=== PATIENT | female | born 1940 | race Caucasian/White ===

== ENCOUNTER 2017-12-08 14:20 | Outpatient (CLI) | payer MEDICARE ==
--- NOTE | 2017-12-08 15:57 | RAD ---
TWO VIEW CHEST: 12/08/17 COMPARISON: 06/15/17 INDICATION: Dyspnea. FINDINGS: No new consolidation, effusion or pneumothorax. Metallic clips are again seen at the left upper quadr ant. There is vascular calcification. Osseous structures are stable. IMPRESSION: Stable chest. POS: [facility]
== END 2017-12-08 14:21 | disposition home or self-care (01) ==
LOC: RAD 14:20
PROVIDERS: ATTEND Internal Medicine Pulmonary Disease
DX: R06.00 Dyspnea, unspecified (principal)
CPT/HCPCS: 71046

== ENCOUNTER 2018-01-12 08:55 | Day surgery (SDC) | payer MEDICARE ==
[2018-01-12] MEDS ORDERED: diphenhydrAMINE 25 MG CAP PO SCH (09:30)
[2018-01-12] MEDS ORDERED: Acetaminophen 500 MG TAB PO SCH (09:30)
[2018-01-12] MEDS ORDERED: Sodium Chloride 0.9% 20 ML ONE (09:47)
[2018-01-12 15:25] VITALS: BP 163/70; TEMP 98.1
[2018-01-12 16:53] LABS: Anisocytosis SLIGHT = 6-15 cells (100X) (0-5/hpf); Hemoglobin 11.5 g/dL (12.0-16.0); Hypochromia SLIGHT = 6-15 cells (100X) (0-5/hpf); Lymphocytes 7 % (21-51); MDiff Complete? YES; Mean Corpuscular HGB CONC 30.7 g/dL (32.0-36.0); Mean Corpuscular Hemoglobin 32.5 pg (27.0-31.0); Mean Platelet Volume 7.2 fL (7.4-10.4); Monocytes 5 % (0-10); Neutrophil 87 % (42-75); PLT Morphology Comment Appears Adequate; Platelet Count 325 thou/uL (130-400); RBC Distribution Width 19.2 % (11.5-14.5); Reactive Lymphocytes 1 % (0-10); Red Blood Cell (RBC) Count 3.54 mill/uL (4.20-5.40); White Blood Cell (WBC) Count 5.4 thou/uL (4.8-10.8)
== END 2018-01-12 16:40 | disposition home or self-care (01) ==
LOC: ONC/OP 08:55
PROVIDERS: ATTEND Internal Medicine Hematology & Oncology
PROC: 30233N1 Transfusion of Nonautologous Red Blood Cells into Peripheral Vein, Percutaneous Approach (ICD-10-PCS; principal; 2018-01-12)
DX: D64.9 Anemia, unspecified (principal); D69.6 Thrombocytopenia, unspecified
CPT/HCPCS: 36415; 36430; 85025; 86850; 86900; 86901; A4216; P9016

== ENCOUNTER 2018-02-09 05:57 | Day surgery (SDC) | payer MEDICARE ==
[2018-02-08 14:54] VITALS: BMI 28.3
[2018-02-09] MEDS ORDERED: Ondansetron HCl/PF 4 MG/2 ML Vial ONE ×2 (07:26→14:53)
[2018-02-09] MEDS ORDERED: Promethazine HCl 25 MG/ML VIAL ONE (07:26)
--- NOTE | 2018-02-09 07:39 | HP ---
SHORT STAY HISTORY AND PHYSICAL DATE OF ADMISSION: 02/09/2018 HISTORY OF PRESENT ILLNESS: This is a 77-year-old female referred to me for evaluation of anemia, oc cult GI bleeding. The patient has a history of iron-deficiency anemia over the last four years. The patient has no history of active bleeding. . The patient has similar episodes in 2013 and coronado d an EGD and colonoscopy in [place]. It was actually reported negative. The patient's blood count h as been dropping her off and on. The patient had stool for occult blood . Dr. Girard and was f ound to have positive occult blood. The patient has no abdominal pain, no nausea, no vomiting. No d ysphagia, no odynophagia. The patient has history of coronary artery disease, status post stent plac ement. She had type 2 diabetes. The patient comes for an EGD and a colonoscopy because of ane leopoldo, occult GI bleeding. ALLERGIES: Allergic to , PROPOFOL. SOCIAL HISTORY: The patient is former smoker. Quit smoking in 1997. She has no alcohol intake. MEDICAL ILLNESSES: 1. Hypertension. 2. Coronary artery disease, status post stent placement. 3. Renal artery stent placement. 4. stent placement. 5. Trigeminal neuralgia. 6. Chronic obstructive pulmonary disease. 7. Hyperlipidemia. 8. IPD status post splenectomy in 1974. PHYSICAL EXAMINATION: VITAL SIGNS: Pulse is 70, blood pressure 130/80. HEENT: Conjunctivae clear. CARDIOVASCULAR AND LUNGS: Within normal limits. ABDOMEN: Soft to palpate. No organomegaly. No tenderness. No masses. ADMITTING DIAGNOSIS: Anemia, occult gastrointestinal bleeding. PLAN: EGD and colonoscopy.
[2018-02-09] MEDS ORDERED: PROPOFOL 200 MG/20 ML VIAL ONE (14:53)
[2018-02-09] MEDS ORDERED: Lidocaine 1% PF 5 ML VIAL ONE (14:53)
[2018-02-09] MEDS ORDERED: Dexamethasone 20 MG/5 ML VIAL ONE (14:53)
--- NOTE | 2018-02-10 00:54 | OP ---
DATE OF PROCEDURE: 02/09/2018 OPERATIVE PROCEDURE: Colonoscopy. PREOPERATIVE DIAGNOSIS: A 77-year-old female with anemia, occult gastrointestinal bleeding . The patient is undergoing colonoscopy. POSTOPERATIVE DIAGNOSES: 1. Sigmoid diverticular disease. 2. Hemorrhoids. PROCEDURE NOTE: The patient was placed on her left lateral position and was given sedation by Anesth esia Department. A rectal exam was done before the scope was advanced into the rectum. No lesions f elt on rectal exam. A Pentax video colonoscope was introduced into the rectum and advanced all the w ay into cecum. The patient has redundant colon and abdominal compression was used to advance the sco pe all the way into the cecum. The appendical orifice, ileocecal valve and cecum, no pathology seen. The mucosa appears normal throughout the colon with normal vascular pattern. Withdrawal of scope f rom the cecum to ascending colon and hepatic flexure, no pathology seen except for occasional diverti cula over the ascending colon. The transverse colon, splenic flexure and descending colon, no pathol ogy seen. The sigmoid colon showed scattered diverticular disease. Rectum showed hemorrhoids.
--- NOTE | 2018-02-10 00:58 | OP ---
DATE OF SURGERY: 02/09/2018 OPERATIVE PROCEDURE: Esophagogastroduodenoscopy. PREOPERATIVE DIAGNOSIS: A 77-year-old female undergoing EGD because of anemia, occult sean rointestinal bleeding. POSTOPERATIVE DIAGNOSIS: 2-3 small gastric polyps over gastric body. Otherwise, the exam is normal. PROCEDURE NOTE: The patient was placed on left lateral position and was given sedation by Anesthesia Department. A Pentax video gastroscope under direct vision was passed down the oropharynx, past the GE junction, into the stomach and subsequently into the descending duodenum. The esophageal mucosa appeared normal. In the GE junction, no pathology seen. Retroflexion failed to show any lesions in the fundus or cardia. The gastric body shows the gastric polyp. The polyp appears endoscopically hy perplastic and very small. No biopsies were obtained. The gastric antrum, incisural angularis, no p athology seen. The duodenal bulb and descending duodenum, no pathology seen. The stomach was decomp ressed and the scope removed. DISCHARGE PLANNING: A 77-year-old female referred to me by Dr. Jose Juan Girard because of an emia, occult GI bleeding. The colonoscopy showed no pathology to explain anemia. The patient has coronado d EGD and colonoscopy and capsule endoscopy 4 years ago in [place]. At that time, all are reported n ormal. The patient does take clopidogrel. Based on the above information, it was thought that the p atient would have mild oozing of blood from possibly AVMs. DISCHARGE RECOMMENDATIONS: 1. The patient is advised to call me if she develops abdominal pain, hematochezia, or fever. 2. To come back to clinic in 2 weeks.
== END 2018-02-09 09:20 | disposition home or self-care (01) ==
LOC: SDC 05:57
PROVIDERS: ATTEND Internal Medicine Gastroenterology
PROC: 0DJD8ZZ Inspection of Lower Intestinal Tract, Via Natural or Artificial Opening Endoscopic (ICD-10-PCS; principal; 2018-02-09)
PROC: 0DJ08ZZ Inspection of Upper Intestinal Tract, Via Natural or Artificial Opening Endoscopic (ICD-10-PCS; 2018-02-09)
DX: K31.7 Polyp of stomach and duodenum (principal); K57.30 Diverticulosis of large intestine without perforation or abscess without bleeding; K64.4 Residual hemorrhoidal skin tags; D50.9 Iron deficiency anemia, unspecified; R19.5 Other fecal abnormalities; I10 Essential (primary) hypertension; I25.10 Atherosclerotic heart disease of native coronary artery without angina pectoris; J44.9 Chronic obstructive pulmonary disease, unspecified; E78.5 Hyperlipidemia, unspecified; Z88.8 Allergy status to other drugs, medicaments and biological substances; Z87.891 Personal history of nicotine dependence; Z79.02 Long term (current) use of antithrombotics/antiplatelets; Z79.51 Long term (current) use of inhaled steroids; Z79.83 Long term (current) use of bisphosphonates; Z79.899 Other long term (current) drug therapy; Z90.81 Acquired absence of spleen; Z98.890 Other specified postprocedural states
CPT/HCPCS: J1100; J2001; J2405; J2550; J2704

== ENCOUNTER 2018-07-25 11:36 | Emergency (ER) | payer MEDICARE ==
[2018-07-25 13:05] LABS: #Basophils 0.2 thou/uL (0.0-0.2); #Eosinphils 0.2 thou/uL (0.0-0.7); #Neutrophils 4.2 thou/uL (1.40-6.50); %Basophils 2.8 % (0.0-1.0); %Eosinophils 2.4 % (0.0-10.0); %Lymphocytes 15.8 % (21.0-51.0); %Monocytes 14.5 % (0.0-10.0); %Neutrophils 64.5 % (42.0-75.0); Hemoglobin 13.2 g/dL (12.0-16.0); Mean Corpuscular HGB CONC 32.4 g/dL (32.0-36.0); Mean Corpuscular Hemoglobin 31.7 pg (27.0-31.0); Mean Corpuscular Volume 97.7 fL (78.0-98.0); Mean Platelet Volume 7.8 fL (7.4-10.4); Platelet Count 267 thou/uL (130-400); Red Blood Cell (RBC) Count 4.18 mill/uL (4.20-5.40); White Blood Cell (WBC) Count 6.6 thou/uL (4.8-10.8)
[2018-07-25 13:16] LABS: ALT (SGPT) 16 U/L (8-55); AST (SGOT) 22 U/L (5-34); Albumin 4.2 g/dL (3.4-4.8); Alkaline Phosphatase 91 U/L (40-150); Anion Gap 12 mmol/L (10-20); BUN (Urea Nitrogen) 17 mg/dL (9.8-20.1); Bilirubin, Total 0.2 mg/dL (0.2-1.2); Calc. Creatinine Clearance 0 mL/min (70-130); Calcium 9.6 mg/dL (7.8-10.44); Carbon Dioxide 28 mmol/L (23-31); Chloride 104 mmol/L (98-107); Estimated GFR-MDRD 68; Globulin 2.9 g/dL (2.4-3.5); Glucose 114 mg/dL (83-110); Protein, Total 7.1 g/dL (6.0-8.3); Sodium 140 mmol/L (136-145)
--- NOTE | 2018-07-25 14:22 | ULT ---
VENOUS DOPPLER ULTRASOUND OF THE LEFT LOWER EXTRMITY: HISTORY: Left lower extremity erythema and edema. TECHNIQUE: Villeda scale, color flow, and spectral Doppler imaging of the deep venous system of the left lower extr emity is performed. FINDINGS: There is good flow, compression, and augmentation noted in the left common femoral, femoral, deep fem oral, popliteal, posterior tibial, and visualized portions of the greater saphenous veins. IMPRESSION: No evidence of deep vein thrombosis in the left lower extremity. POS: [facility]
== END 2018-07-25 14:09 | disposition home or self-care (01) ==
LOC: SCSER 11:36
DX: L53.9 Erythematous condition, unspecified (principal); I25.10 Atherosclerotic heart disease of native coronary artery without angina pectoris; E78.5 Hyperlipidemia, unspecified; K21.9 Gastro-esophageal reflux disease without esophagitis; I10 Essential (primary) hypertension; G62.9 Polyneuropathy, unspecified; M81.0 Age-related osteoporosis without current pathological fracture; J44.9 Chronic obstructive pulmonary disease, unspecified; Z86.718 Personal history of other venous thrombosis and embolism; Z79.899 Other long term (current) drug therapy
CPT/HCPCS: 36415; 80053; 85025; 85730

== ENCOUNTER 2018-11-29 07:55 | Outpatient (CLI) | payer MEDICARE ==
[2018-11-29 09:02] LABS: Bilirubin Negative (Negative); Blood, Urine Negative (Negative); Clarity Clear (Clear); Glucose, Urine (Dipstick) Negative (Negative); Leukocyte Negative (Negative); Nitrite Negative (Negative); Protein, Urine (Dipstick) Negative (Neg-Trace); Urobilinogen 0.2 mg/dL (0.2-1.0)
[2018-11-29 09:10] LABS: ALT (SGPT) 18 U/L (8-55); AST (SGOT) 24 U/L (5-34); Albumin 4.1 g/dL (3.4-4.8); Alkaline Phosphatase 89 U/L (40-150); Anion Gap 13 mmol/L (10-20); BUN (Urea Nitrogen) 17 mg/dL (9.8-20.1); Bilirubin, Total 0.3 mg/dL (0.2-1.2); Calc. Creatinine Clearance 0 mL/min (70-130); Calcium 9.3 mg/dL (7.8-10.44); Carbon Dioxide 28 mmol/L (23-31); Chloride 100 mmol/L (98-107); Estimated GFR-MDRD 69; Globulin 3.1 g/dL (2.4-3.5); Glucose 88 mg/dL (83-110); Potassium 4.3 mmol/L (3.5-5.1); Protein, Total 7.2 g/dL (6.0-8.3); Sodium 137 mmol/L (136-145)
--- NOTE | 2018-11-29 09:17 | RAD ---
THORACIC SPINE SERIES THREE VIEWS: History: Back pain x 1 one week. Comparison: 12-08-17 chest radiograph. FINDINGS: The bones are demineralized. Loss of vertebral body height of one of the mid thoracic bodies which ap pears to be probably the T7 vertebral body and slight loss of vertebral body height of T11. Changes a ppear stable. I see no new compression injury. Degenerative osteophytes are seen. Pedicles are intact . IMPRESSION: Arthritic changes of the spine, stable minimal loss of vertebral height at what appears to be T7 and T11. POS: [facility]
[2018-11-29 10:12] LABS: Band 4 % (5-11); Hemoglobin 13.9 g/dL (12.0-16.0); Lymphocytes 9 % (21-51); MDiff Complete? YES; Mean Corpuscular HGB CONC 31.3 g/dL (32.0-36.0); Mean Corpuscular Hemoglobin 31.5 pg (27.0-31.0); Monocytes 16 % (0-10); Neutrophil 69 % (42-75); Platelet Count 230 thou/uL (130-400); Platelet Morphology Comment Appears Adequate; RBC Distribution Width 13.9 % (11.5-14.5); RBC Morphology Normal; Reactive Lymphocytes 1 % (0-10); White Blood Cell (WBC) Count 8.6 thou/uL (4.8-10.8)
== END 2018-11-29 07:56 | disposition home or self-care (01) ==
LOC: SCSRAD 07:55
PROVIDERS: ATTEND Internal Medicine Geriatric Medicine
DX: M54.6 Pain in thoracic spine (principal); M46.94 Unspecified inflammatory spondylopathy, thoracic region
CPT/HCPCS: 36415; 72072; 80053; 81003; 85025; 87086

== ENCOUNTER 2018-12-06 08:45 | Outpatient (CLI) | payer MEDICARE ==
--- NOTE | 2018-12-06 10:06 | CT ---
CT ABDOMEN NONCONTRAST: HISTORY: Right flank pain. COMPARISON: 08/26/2017. FINDINGS: Each renal collecting system and proximal ureter are decompressed. No stones visible. The distal ur eters are not imaged, as the pelvis was not included on the exam. Lack of contrast limits evaluation for other abnormalities. Calcifications at the left renal hilum a re arterial in origin. Hemostasis clips are again demonstrated between the pancreatic tail and the g reater curvature of the stomach. There is prominent calcification within the arterial structures inc luding high-grade stenosis of the distal aorta and stenosis of the iliac arteries. There are degener ative changes of the lumbar spine. IMPRESSION: 1. No renal stones are visible. No cause for right flank pain evident. The pelvis was not imaged f or complete visualization of the urinary system. 2. Severe atherosclerosis with probable high-grade stenoses of the distal abdominal aorta and iliac arteries. POS: [facility]
== END 2018-12-06 08:46 | disposition home or self-care (01) ==
LOC: CT 08:45
PROVIDERS: ATTEND Internal Medicine Geriatric Medicine
DX: R10.9 Unspecified abdominal pain (principal); I70.1 Atherosclerosis of renal artery
CPT/HCPCS: 74150

== ENCOUNTER 2018-12-06 13:07 | Outpatient (CLI) | payer MEDICARE ==
--- NOTE | 2018-12-06 13:41 | RAD ---
TWO VIEWS OF THE CHEST: COMPARISON: 12/08/2017. HISTORY: Dyspnea. FINDINGS: Two views of the chest show normal sized cardiomediastinal silhouette. There is no evidence of consol idation, mass, or pleural effusion. The bones are unremarkable. Surgical clips are seen in the left upper quadrant of the abdomen. IMPRESSION: No evidence of acute cardiopulmonary disease. POS: [facility]
== END 2018-12-06 13:08 | disposition home or self-care (01) ==
LOC: RAD 13:07
PROVIDERS: ATTEND Internal Medicine
DX: R06.00 Dyspnea, unspecified (principal); R10.9 Unspecified abdominal pain; I70.1 Atherosclerosis of renal artery
CPT/HCPCS: 71046; 74150

== ENCOUNTER 2019-01-16 13:23 | Outpatient (CLI) | payer MEDICARE ==
[~2019-01-16 13:23] MED LIST: Iopamidol 370 76% 100 ML VIAL ONE
--- NOTE | 2019-01-16 15:08 | CT ---
CT PULMONARY ANGIOGRAM WITH IV CONTRAST AND 3D POSTPROCESSING: Date: 01/16/19 HISTORY: Shortness of breath, hypoxemia, COPD. FINDINGS: No filling defects are seen in the contrast-opacified pulmonary arterial vasculature to suggest pulmo nary embolism. The thoracic aorta is well opacified without aneurysm or dissection. Vascular calcific ations are present. No pleural or pericardial effusions are noted. There are emphysematous changes in the lung abdi bilaterally. No pneumothoraces, lobar consolidation, or lung masses are identified. There are degenerative changes in the spine. IMPRESSION: No CT evidence of pulmonary embolism. POS: [facility]
--- NOTE | 2019-01-17 09:36 | EKG ---
Test Reason : Blood Pressure : / mmHG Vent. Rate : 079 BPM Atrial Rate : 079 BPM P-R Int : 178 ms QRS Dur : 094 ms QT Int : 410 ms P-R-T Axes : 075 001 062 degrees QTc Int : 470 ms Normal sinus rhythm Normal ECG No previous ECGs available Confirmed by DR. Joselyn BACA ([id number]) on 01/17/2019 9:36:01 AM Referred By: SHANTHI Confirmed By:DR. Joselyn BACA
== END 2019-01-16 13:24 | disposition home or self-care (01) ==
LOC: CT 13:23
PROVIDERS: ATTEND Internal Medicine
DX: J96.21 Acute and chronic respiratory failure with hypoxia (principal); I49.9 Cardiac arrhythmia, unspecified
CPT/HCPCS: 71275; 80053; 82248; 82728; 83615; 84100; 84550; 93005; 93010; Q9967

== ENCOUNTER 2019-04-17 05:57 | Day surgery (SDC) | payer MEDICARE ==
[2019-04-14 14:10] VITALS: BMI 29.5
[2019-04-17 06:46] LABS: Hemoglobin 12.4 g/dL (12.0-16.0); Mean Corpuscular HGB CONC 32.5 g/dL (32.0-36.0); Mean Corpuscular Hemoglobin 31.5 pg (27.0-31.0); Mean Platelet Volume 8.4 fL (7.4-10.4); Platelet Count 228 thou/uL (130-400); RBC Distribution Width 12.9 % (11.5-14.5); Red Blood Cell (RBC) Count 3.95 mill/uL (4.20-5.40); White Blood Cell (WBC) Count 5.4 thou/uL (4.8-10.8)
[2019-04-17] MEDS ORDERED: Lidocaine 1% (PF) 30 ML VIAL ONE (06:54)
[2019-04-17 06:55] LABS: ALT (SGPT) 14 U/L (8-55); AST (SGOT) 20 U/L (5-34); Albumin 4.1 g/dL (3.4-4.8); Alkaline Phosphatase 56 U/L (40-150); Anion Gap 14 mmol/L (10-20); BUN (Urea Nitrogen) 15 mg/dL (9.8-20.1); Bilirubin, Total 0.4 mg/dL (0.2-1.2); Calc. Creatinine Clearance 69 mL/min (70-130); Calcium 10.1 mg/dL (7.8-10.44); Carbon Dioxide 28 mmol/L (23-31); Chloride 101 mmol/L (98-107); Estimated GFR-MDRD 66; Globulin 2.7 g/dL (2.4-3.5); Glucose 90 mg/dL (83-110); Potassium 3.5 mmol/L (3.5-5.1); Protein, Total 6.8 g/dL (6.0-8.3); Sodium 139 mmol/L (136-145)
[2019-04-17 06:57] LABS: Band 1 % (5-11); Eosinophils 1 % (0-10); Lymphocytes 21 % (21-51); MDiff Complete? YES; Monocytes 16 % (0-10); Neutrophil 59 % (42-75); Platelet Morphology Comment Appears Adequate; Reactive Lymphocytes 1 % (0-10)
[2019-04-17] MEDS ORDERED: Midazolam HCl 2 mg/2 ml Vial ONE (07:50)
[2019-04-17] MEDS ORDERED: Fentanyl 100 MCG/2 ML VIAL ONE (07:50)
[2019-04-17] MEDS ORDERED: Heparin 10,000 UNITS/1 ML VIAL ONE (08:42)
[2019-04-17] MEDS ORDERED: CEFAZOLIN 1 GM VIAL ONE (08:49)
[2019-04-17] MEDS ORDERED: Protamine Sulfate 50 MG/5 ML VIAL ONE (08:50)
--- NOTE | 2019-04-17 10:12 | OP ---
DATE OF PROCEDURE: 04/17/2019 PREPROCEDURE DIAGNOSIS: Claudication. POSTPROCEDURE DIAGNOSIS: Moderate peripheral vascular disease. PROCEDURES PERFORMED: 1. Aortogram. 2. Bilateral aortofemoral runoff. 3. Intravascular ultrasound of the left lower extremity. 4. Additional intravascular ultrasound of the right lower extremity. 5. Sedation time 45 minutes. DESCRIPTION OF PROCEDURE: The patient was draped and prepped in sterile fashion. Access was obtained in the right femoral artery under ultrasound guidance. Micropuncture sheath was employed. A Contra catheter was used for aortogram. This was then placed in the contralateral segment successfully with images performed. 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 There appears to be calcification noted at the distal portion of the aorta. Right lower extremity - the common iliac artery has a stent placed and it appears patent. There is an external iliac artery that has a stent as well that appears patent. No significant gradient noted. The common femoral artery is patent. The SFA and popliteal artery are patent. Left lower extremity - the common iliac artery has less than 50% stenosis. There is a small healed dissection noted on previous studies. There is a stent present in the external iliac artery that appears somewhat malposed but patent. There is also a lesion present within the long stented region that appears "napkin ring-like." Percent stenosis is unknown. There is a gradient estimated 50 mmHg. The common femoral artery and SFA have no significant disease. INTERVENTIONAL PROCEDURE: Due to the indeterminate nature of the areas of concern, IVUS was recommended. Heparin was used for anticoagulation. Initially, there were attempts at placing a Luge wire into the contralateral segment which was placed successfully. The IVUS would not pass. It was then decided to use a [place] catheter to exchange for a Mailman wire. This was performed successfully, but the Mailman wire was not long enough to proceed with IVUS. It was then decided to exchange for a 5-[place] Destination sheath. The Ookala catheter was then placed back over the wire and exchanged for a Wholey wire. With removal of the 5-[place] diagnostic sheath, there was loss of wire that hit the side of the drape. Multiple wipes of the wire performed. Because the 5-[place] sheath had already been removed, I could not replace the 5-[place] sheath without an introducer. It was decided to continue and after wiping the wire multiple times, the 5-[place] sheath was exchanged for the 5-[place] Destination sheath. One dose of Ancef was given. This was as a precaution. IVUS then was successfully placed after the 5-[place] sheath was placed. IVUS revealed 20% stenosis within the napkin ring-like area and malpositioned in the proximal portion of the external iliac stent, but no significant stenosis present. The healed dissection was also noted. IVUS of the right common iliac artery and ostium of the aorta did not reveal significant stenosis. Ostium of the left common iliac artery did not suggest significant stenosis. Protamine was given at the end of the study. Job ID: [id number]
[2019-04-17] MEDS ORDERED: traMADol HCl 50 MG TAB ONE (12:02)
[2019-04-17] MEDS ORDERED: Iopamidol 370 76% 100 ML VIAL ONE (12:17)
== END 2019-04-17 14:30 | disposition home or self-care (01) ==
LOC: CCL 05:57
PROVIDERS: ATTEND Internal Medicine Cardiovascular Disease
PROC: B40D1ZZ Plain Radiography of Aorta and Bilateral Lower Extremity Arteries using Low Osmolar Contrast (ICD-10-PCS; principal; 2019-04-17)
PROC: B44LZZ3 Ultrasonography of Femoral Artery, Intravascular (ICD-10-PCS; 2019-04-17)
DX: I73.9 Peripheral vascular disease, unspecified (principal); I25.10 Atherosclerotic heart disease of native coronary artery without angina pectoris; E78.00 Pure hypercholesterolemia, unspecified; J44.9 Chronic obstructive pulmonary disease, unspecified; I10 Essential (primary) hypertension; Z88.8 Allergy status to other drugs, medicaments and biological substances; Z79.51 Long term (current) use of inhaled steroids; Z79.82 Long term (current) use of aspirin; Z79.899 Other long term (current) drug therapy; Z86.73 Personal history of transient ischemic attack (TIA), and cerebral infarction without residual deficits
CPT/HCPCS: 36246; 36415; 37252; 37253; 75625; 75716; 76942; 80053; 85025; 85347; 99152; 99153; C1725; C1753; C1769; J0690; J1644; J2001; J2250; J2720; J3010; Q9967